=== PATIENT | female | born 1975 | race Caucasian/White ===

== ENCOUNTER 2022-02-21 09:50 | Day surgery (SDC) | payer MEDICARE, MEDICAID ==
[~2022-02-21] VITALS: Ht 160 cm; Wt 85.6 kg
[2022-02-21] MEDS ORDERED: ZANAFLEX CAPSULE4 MG PO (10:16)
[2022-02-21] MEDS ORDERED: ROXICODONE 55 MG/TAB PO (10:16)
[2022-02-21] MEDS ORDERED: ADVIL200 MG PO (10:17)
[2022-02-21 11:10] VITALS: BP 116/65; PULSE 94; TEMP 97.8
--- NOTE | 2022-02-21 11:13 | NUR ---
1100 - IV started by Kameron BERGERON on second attempt with 22G
--- NOTE | 2022-02-21 12:43 | NUR ---
PT assisted to bathroom by Radha BERGERON
--- NOTE | 2022-02-21 14:30 | NUR ---
1336 - PT arrives and settled by x2 RN. Monitors applied and vitals obtained. PT denies nausea; PT provided ice water and applesauce per request. PT expressed desire to be discharged; however, RN educated her about post-operative monitoring. PT verbalized understanding. PT oriented to room and call casas, within reach. 1351 - Vitals obtained. PT continues to drink and snack. Call casas remains within reach. Daughter contacted per PT request. 1406 - DC instructions and educational material reveiwed with the PT who verbalized understanding and signed the related paperwork. Questions answered to PT satisfaction. IV discontinued. Catheter tip intact. Pressure bandage applied. NO redness or swelling noted. Vitals then obtained. PT assisted with changing into her personal clothes by RN; PT then dismissed from [facility] [place] to the PT entrence by Mera BERGERON. PT has DC packet and personal belongings in hand, and was transferred into the care of her daughter and family, who is driving private car.
== END 2022-02-21 14:30 | disposition home or self-care (01) ==
LOC: SDCO 09:50
DX: C53.0 Malignant neoplasm of endocervix (principal)
CPT/HCPCS: C1788; J1644

== ENCOUNTER 2022-03-10 15:53 | Emergency (ER) | payer MEDICARE, MEDICAID ==
[~2022-03-10] VITALS: Ht 160 cm; Wt 80.5 kg
[~2022-03-10 15:53] MED LIST: ADVIL200 MG PO; ROXICODONE 55 MG/TAB PO; ZANAFLEX CAPSULE4 MG PO
[2022-03-10 16:03] VITALS: TEMP 97.2
[2022-03-10] MEDS ORDERED: CELEBREX 200MG200 MG PO (16:22)
[2022-03-10] MEDS ORDERED: DILAUDID 2MG TAB2 MG PO (16:23)
[2022-03-10] MEDS ORDERED: FENTANYL 25 MCG TD (16:23)
[2022-03-10] MEDS ORDERED: NARCAN4 MG NS (16:24)
[2022-03-10] MEDS ORDERED: REGLAN 10MG10 MG/TAB PO (16:24)
[2022-03-10] MEDS ORDERED: PRILOSEC 20MG20 MG PO (16:24)
[2022-03-10] MEDS ORDERED: XANAX 1MG1 MG PO (16:24)
[2022-03-10] MEDS ORDERED: ZANAFLEX 4MG TAB4 MG PO (16:25)
[2022-03-10] MEDS ORDERED: ZOFRAN ODT4 MG PO (16:25)
[2022-03-10 17:04] LABS: BASO # 0.1 K/mm3 (0.0-0.2); BASO % 0.6 % (0.0-2.0); EOS # 0.3 K/mm3 (0.0-0.7); EOS % 2.5 % (0.0-4.0); GRAN % 79.5 % (42.2-75.2); HEMOGLOBIN 10.1 g/dl (12.5-16.0); LYMPH # 1.1 K/mm3 (1.2-3.4); LYMPH % 11.4 % (20.0-51.0); MEAN CELL VOLUME 74 fl (80.0-100.0); MEAN CORPUSCULAR HEMOGLOBIN 23 pg (27-31); MEAN CORPUSCULAR HGB CONC 31 g/dl (33.0-37.0); MEAN PLATELET VOLUME 9.1 fl (7.4-10.4); MONO # 0.6 K/mm3 (0.1-0.6); MONO % 5.7 % (1.7-9.3); PLATELET COUNT 437 K/mm3 (130-400); RED BLOOD COUNT 4.44 M/mm3 (4.10-5.30); REDCELL DISTRIBUTION WIDTH-CV 17.8 % (11.5-14.5)
[2022-03-10 17:21] LABS: ALBUMIN 2.9 gm/dL (3.5-5.0); BILIRUBIN,TOTAL 0.6 mg/dL (0.2-1.2); C-REACTIVE PROTEIN 7.37 mg/dL (0.00-0.50); CALCIUM 9.2 mg/dL (8.4-10.2); CREATININE, serum 0.84 mg/dL (0.57-1.11); TOTAL PROTEIN 7.2 gm/dL (6.2-8.1)
[2022-03-10 17:25] LABS: POTASSIUM 2.9 mmol/L (3.5-4.5)
[2022-03-10 18:01] LABS: COLLECTION METHOD CLEAN CATCH
[2022-03-10 18:19] LABS: SQUAMOUS EPITHELIAL 0-2 /hpf (0-10); URINE BACTERIA None Seen /hpf (NONE SEEN); URINE RBC 0-2 /hpf (0-2)
[2022-03-10 18:21] LABS: PH 6 (5-8); URINE APPEARANCE Clear (CLEAR/HAZY); URINE BLOOD 2+ (NEGATIVE); URINE COLOR Straw (YELLOW); URINE GLUCOSE Negative (NEGATIVE); URINE KETONE Negative (NEGATIVE); URINE NITRATE Negative (NEGATIVE); URINE PROTEIN(semi-quant) Negative (NEGATIVE); URINE UROBILINOGEN Negative (NEGATIVE)
[2022-03-10] MEDS ORDERED: K-TAB20 PO (19:26)
[2022-03-10 19:49] VITALS: BP 134/85; PULSE 92
== END 2022-03-10 19:52 | disposition home or self-care (01) ==
LOC: COL.ER 15:53
PROVIDERS: Nurse Practitioner
DX: M54.50 Low back pain, unspecified (principal); G89.29 Other chronic pain; E87.6 Hypokalemia; K59.00 Constipation, unspecified; F17.200 Nicotine dependence, unspecified, uncomplicated; Z91.040 Latex allergy status; Z28.310 Unvaccinated for COVID-19
CPT/HCPCS: J1170; J2060; J2550; J7030

== ENCOUNTER 2022-03-24 17:40 | Observation (INO) | payer MEDICARE, MEDICAID ==
[~2022-03-24] VITALS: Ht 160 cm; Wt 78.7 kg
[~2022-03-24 17:40] MED LIST changes: +CELEBREX 200MG200 MG PO; +DILAUDID 2MG TAB2 MG PO; +FENTANYL 25 MCG TD; +K-TAB20 PO; +NARCAN4 MG NS; +PRILOSEC 20MG20 MG PO; +REGLAN 10MG10 MG/TAB PO; +XANAX 1MG1 MG PO; +ZANAFLEX 4MG TAB4 MG PO; +ZOFRAN ODT4 MG PO
--- NOTE | 2022-03-24 19:10 | NUR ---
PT ARRIVES VIA W/C TO ROOM 323. WAS NOT PREPARED TO STAY THE NIGHT, FAMILY THOUGHT PT WOULD GET A STENT AND GO HOME. WILL HAVE MONICO DICKERSON TALK WITH PT.
[2022-03-24 20:01] VITALS: BP 135/63; PULSE 99; TEMP 98.3
[2022-03-24] MEDS ORDERED: ROXICODONE 55 MG/TAB PO (20:09)
[2022-03-24] MEDS ORDERED: NEURONTIN300 MG/CAP PO (20:10)
[2022-03-24] MEDS ORDERED: ZOFRAN ODT8 MG PO (20:11)
[2022-03-24] MEDS ORDERED: MACROBID 1100 MG/CAP PO (20:11)
--- NOTE | 2022-03-24 20:30 | NUR ---
PT AGREES TO STAY. ADMISSION QUESTIONS COMPLETED. PT REPORTS ABD CRAMPING, WAS GIVEN MOM AND DULCOLAX SUPPOS AT [facility].
--- NOTE | 2022-03-24 22:05 | NUR ---
PT ASSISTED TO BATHROOM, UNABLE TO VOID OR HAVE A BM. MEDICATED WITH DILAUDID 0.5MG IVP FOR ABD PAIN ONCE BACK TO BED.
[2022-03-24 23:13] VITALS: BP 154/80; PULSE 112; TEMP 97.6
--- NOTE | 2022-03-24 23:33 | NUR ---
PT MEDICATED WITH POTASSIUM, OXYCODONE AND ZANAFLEX. ASSISTED TO BATHROOM TO VOID.
[2022-03-25] VITALS (9 sets, daily range): BP systolic 118–151; BP diastolic 66–87; PULSE 66–98; TEMP 97.8–98.3
--- NOTE | 2022-03-25 00:03 | NUR ---
PT WITH EMESIS, MEDICATED WITH DILAUDID 0.5MG IVP AND ZOFRAN 4MG IVP AT THIS TIME.
--- NOTE | 2022-03-25 00:23 | NUR ---
BLADDER SCANNED FOR 354CC URINE.
--- NOTE | 2022-03-25 00:35 | NUR ---
ATIVAN 1MG IVP FOR LEG CRAMP/ANXIETY.
--- NOTE | 2022-03-25 00:45 | NUR ---
NOTIFIED MONICO DICKERSON OF PTS BLADDER SCAN AMOUNT, OKAYED TO STRAIGHT CATH X1.
--- NOTE | 2022-03-25 01:00 | NUR ---
STRAIGHT CATHED FOR 350CC OF LEFTY URINE. UA COLLECTED AND SENT TO LAB.
[2022-03-25 01:03] LABS: COLLECTION METHOD CLEAN CATCH
--- NOTE | 2022-03-25 03:19 | NUR ---
PT COMPLAINS OF LEFT LEG PAIN, DILAUDID 0.5MG IVP GIVEN.
[2022-03-25 03:29] LABS: MUCOUS Present (NOT PRESENT); SQUAMOUS EPITHELIAL None Seen /hpf (0-10); URINE BACTERIA None Seen /hpf (NONE SEEN)
[2022-03-25 03:32] LABS: URINE APPEARANCE Clear (CLEAR/HAZY); URINE BLOOD TRACE-INTACT (NEGATIVE); URINE COLOR Amber (YELLOW); URINE GLUCOSE Negative (NEGATIVE); URINE KETONE Negative (NEGATIVE); URINE NITRATE Negative (NEGATIVE); URINE PROTEIN(semi-quant) Negative (NEGATIVE); URINE UROBILINOGEN 0.2 E.U/dL (0.2-1.0)
--- NOTE | 2022-03-25 04:35 | NUR ---
PT COMPLAINS OF LEFT POSTERIOR THIGH PAIN/CRAMPING. PLACED KPAD TO AREA WITHOUT RELIEF OF PAIN. MEDICATED WITH ZOFRAN 4MG IVP WITH MORPHINE 2MG IVP AND ZANAFLEX 4MG PO AT THIS TIME. PT ASKING ABOUT TORADOL.
--- NOTE | 2022-03-25 05:05 | NUR ---
PT STILL HAVING LT POSTERIOR THIGH PAIN, MEDICATED WITH DILAUDID 0.5MG IVP AND TORADOL 15MG IVP AT THIS TIME.
[2022-03-25 06:02] LABS: BASO # 0.1 K/mm3 (0.0-0.2); BASO % 0.6 % (0.0-2.0); EOS # 0.1 K/mm3 (0.0-0.7); EOS % 0.8 % (0.0-4.0); GRAN # 8.4 K/mm3 (1.4-6.5); GRAN % 80.5 % (42.2-75.2); LYMPH # 1.2 K/mm3 (1.2-3.4); LYMPH % 11.7 % (20.0-51.0); MEAN CELL VOLUME 76 fl (80.0-100.0); MEAN CORPUSCULAR HGB CONC 31 g/dl (33.0-37.0); MEAN PLATELET VOLUME 8.6 fl (7.4-10.4); MONO # 0.6 K/mm3 (0.1-0.6); PLATELET COUNT 353 K/mm3 (130-400); RED BLOOD COUNT 3.88 M/mm3 (4.10-5.30); REDCELL DISTRIBUTION WIDTH-CV 19.4 % (11.5-14.5)
[2022-03-25 06:21] LABS: CALCIUM 8.5 mg/dL (8.4-10.2); CREATININE, serum 0.62 mg/dL (0.57-1.11); POTASSIUM 3.6 mmol/L (3.5-4.5)
[2022-03-25 06:23] LABS: HEMATOCRIT 29.3 % (37.0-47.0); MEAN CORPUSCULAR HEMOGLOBIN 23 pg (27-31)
--- NOTE | 2022-03-25 08:00 | NUR ---
PATIENT IS VERY DROWSY AND ONLY BRIEFLY AROUSES TO VERBAL STIMULI. PATIENT RECEIVED LOTS OF PAIN AND ANXIETY MEDS OVER NIGHT FOR UNCONTROLLED PAIN ISSUES. PATIENT ONLY WANTS TO SLEEP RIGHT NOW. CALL LIGHT IN REACH. LIGHTS DOWN AND ROOM DARK SO PATIENT CAN SLEEP IN.
--- NOTE | 2022-03-25 09:00 | NUR ---
PATIENT STILL VERY SEDATED BUT WILL AROUSE TO VERBAL STIMULI FOR SHORT PERIODS. GAVE SCHEDULED AM MEDS WITH SIPS. NPO FOR SURGERY LATER TODAY, APPROX 1700. UROLOGY ROUNDED, CONSENT OBTAINED AND ON CHART. HEAD TO TOE ASSESSMENT COMPLETE. PATIENT GOING BACK TO SLEEP. LIGHTS TURNED DOWN AGAIN PER PATIENT REQUEST. CALL LIGHT IN REACH. PATIENT SLEEPING.
--- NOTE | 2022-03-25 11:30 | NUR ---
PATIENT IS ON FACETIME WITH HER FAMILY. WHEN AWAKE, PATIENT CRIES OUT LOT FOR PAIN MEDS. HX OF CHRONIC NARCOTIC USE AND PATIENT VERBALIZES A HIGH TOLERANCE FOR NARCOTICS. NARCAN NASAL SPRAY IS ALSO ON HOME MEDICATION LIST. PATIENT HAS NEW DIAGNOSIS OF CERVICAL CANCER AND IS SEEING . PATIENT BECOMING INCREASINGLY VOCAL WITH HER PAIN AND TELLING HER FAMILY SHE "NEVER GETS ANY RELIEF". PATIENT WAS VERY SEDATED THIS AM AFTER RECEIVED SEVERAL CONTROLED SUBSTANCES FOR PAIN AND ANXIETY THROUGHT THE NIGHT. PATIENT WOULD BRIEFLY AROUSE AND GO RIGHT BACK TO SLEEP. PATIENT REQUESTING SOMETHING MORE FOR PAIN. AT BEDSIDE. GAVE PRN IV DILAUDID AND PRN IV TORADOL FOR PAIN. GAVE PRN XANAX FOR ANXIETY AND PRN IV ZOFRAN FOR C/O NAUSEA WITH CRYING/EMOTIONS. PATIENT SITTING UP IN BED TALKING WITH HOSPITALIST TEAM AND FAMILY.
--- NOTE | 2022-03-25 11:42 | NUR ---
clerical and administrative workers met with patient to complete intake and discuss discharge plan. Patient reports that she lives at home alone in [place]. She states that she was independent with her ADL's until about a month ago. Since then, her daughter Trinity ([phone]) comes to help her and she has home health services, but cannot remember the agency. Patient reports that she does not utilize any DME to assist with mobility. PCP is Dr. Wagner and she is established with for her cancer diagnosis. Patient has no home oxygen needs and utilizes [facility] in [place] for prescriptions. She states that she does not have a DPOA-HC established and is not interested in one at this time. Patient observed crying and doubled over in pain. Per patient's RN, she has had numerous different pain medications this morning and is not due for anything at this time. Discharge plan: Home
--- NOTE | 2022-03-25 12:20 | NUR ---
Initial visit; Patient thanked Anesthesiology Tech for looking in on her and offering God's blessings. Patient very quiet and appeared to not be fully awake. Anesthesiology Tech wished her well.
--- NOTE | 2022-03-25 15:54 | NUR ---
Phone call received from the RN at [facility]. Rn states that the patient got established with them approx. 3 weeks ago and she has not been able to make progress with this patient. Rn verbalizes concerns over the patient's medications and that she didn't know who was prescribing them stating " is managing 3 and her PCP is only managing 2". Rn goes on to say that she spoke with 's RN this morning, confirmed that the patient had a PET scan on 03/20 but the results were not back yet and until that comes back, Dr. Fowler will not be prescribing her more medications. [facility] RN updated.
--- NOTE | 2022-03-25 16:00 | NUR ---
PATIENT UNABLE TO VOID MORE THAN DRIBBLES BUT REPORTS FEELING THE URGE TO VOID. BLADDER SCAN SHOWED 480CC. CALLED UROLOGY, AWAITING ORDERS.
--- NOTE | 2022-03-25 16:30 | NUR ---
14F [place] CATH PLACED TO DD WITH 425CC OF LEFTY COLORED URINE NOTED WITH STRONG ODOR. PATIENT DROWSY AND AWAITING SURGERY. CONSENT ON CHART.
--- NOTE | 2022-03-25 18:08 | NUR ---
PATIENT GOING DOWN TO OR VIA BED FOR SURGERY. IV FLUIDS TO GRAVITY. CONSENT ON CHART.
--- NOTE | 2022-03-25 22:15 | NUR ---
PATIENT UP TO ROOM 324 AT 1950. DROWSY BUT ALERT. POST OP VSS. PATIENT TOLERATED PO FOOD AND FLUIDS. AMBULATED TO BATHROOM AND VOIDED PINK URINE WITHOUT ISSUE, PATIENT ALSO HAD A FEW EPISODES OF INCONTINENCE. PATIENT REQUESTED PAIN MEDICATION FOR MODERATE PAIN TO HER "UTERUS AND HIP AND DOWN HER LEG" PRN GEREMIAS GIVEN ALONG WITH SCHEDULED TYLENOL. DISCHARGE PAPERWORK AND TEACHING DONE. INSTRUCTED PATIENT TO TAKE HOME MEDICATIONS USUAL AND TO USE TYLENOL FOR PAIN CONTROL. PATIENT REQUESTED STRONGER PAIN MEDICATIONS BUT DID NOT WANT TO STAY LONGER FOR EVALUATION AFTER IV MEDICATIONS. IV TO R HAND DISCONTINUED, CATHETER INTACT, BANDAID APPLIED. FAMILY UP TO BEDSIDE. PATIENT DISCHARGED AT 2145 TO HOME WITH FAMILY VIA WHEELCHAIR.
== END 2022-03-25 21:45 | disposition home or self-care (01) ==
LOC: SURG 18:58
PROVIDERS: Student in an Organized Health Care Education/Training Program; ADMIT Internal Medicine
DX: N13.30 Unspecified hydronephrosis (principal); R31.9 Hematuria, unspecified; C53.9 Malignant neoplasm of cervix uteri, unspecified; N39.0 Urinary tract infection, site not specified; G89.29 Other chronic pain; M79.652 Pain in left thigh; F41.9 Anxiety disorder, unspecified; Z28.310 Unvaccinated for COVID-19; Z28.9 Immunization not carried out for unspecified reason
CPT/HCPCS: A4314; C1769; C2617; G0378; G0379; J0690; J0696; J1100; J1170; J1885; J2060; J2270; J2405; J2704; J3010; J7030

== ENCOUNTER → 2023-10-12 | Outpatient (CLI) | payer MEDICARE, MEDICAID ==
[~2023-10-12] MED LIST changes: +CEFTIN500 MG PO; +COMPAZINE 110 MG/TAB PO; +CYMBALTA 30MG30 MG PO; +FOLIC ACID 11 MG/TA1 PO; +K-DUR20 MEQ PO; +KEPPRA 500MG500 MG PO; +LIPITOR 40MG TA40 MG PO; +LOVENOX 8080 MG/0.8 SQ; +MACROBID 1100 MG/CAP PO; +NEURONTIN300 MG/CAP PO; +PRINCIPEN500 MG PO; +ZOFRAN ODT8 MG PO
== END ==
LOC: MHCPAIN 09:02
DX: M47.817 Spondylosis without myelopathy or radiculopathy, lumbosacral region (principal); M53.3 Sacrococcygeal disorders, not elsewhere classified; M54.50 Low back pain, unspecified
CPT/HCPCS: G0463

== ENCOUNTER → 2023-10-29 | Outpatient (CLI) | payer MEDICARE, MEDICAID | LOC: MHCPAIN 08:40 | DX: M47.817 Spondylosis without myelopathy or radiculopathy, lumbosacral region (principal); M54.50 Low back pain, unspecified | CPT/HCPCS: J0665 ==